=== PATIENT | female | born 1990 | race Asian ===

== ENCOUNTER 2016-05-13 21:46 | Emergency (ER) | payer OTHER ==
[~2016-05-13] VITALS: Ht 161 cm; Wt 70.0 kg
[~2016-05-13 21:46] MED LIST: ADIPEX-P37.5 MG PO; PRIL40 PO; SPRINTEC 35 MCG1 TAB PO; TRI-SPRINTEC 281 TAB PO; ULTRAM 50MG TAB50 MG PO; ZOFRAN8 MG PO
[2016-05-13 21:49] VITALS: TEMP 98.2
[2016-05-13 23:36] VITALS: BP 117/66; PULSE 76
== END 2016-05-13 23:38 | disposition home or self-care (01) ==
LOC: COL.ER 21:46
DX: R51 Headache (principal); F43.20 Adjustment disorder, unspecified
CPT/HCPCS: J1885; J2060; J7030